=== PATIENT | female | born 1940 | race Caucasian/White ===

== ENCOUNTER 2018-07-04 14:52 | Emergency (ER) | payer OTHER ==
[~2018-07-04] VITALS: Ht 162.6 cm; Wt 72.6 kg
[~2018-07-04 14:52] MED LIST: ATEN50 PO; Amoxicillin875 MG PO; CALCIUM; CEPH500 PO; CHOL10002 PO; FAMC500 PO; Guaifenesin-Co118 ML PO; Keflex500 MG PO; NITR100CA PO; ONDA4 PO; Omeprazole20 M1 PO; PHENA100 PO; RANI150 PO; RISE35 PO; TRAM50 PO
[2018-07-04 16:17] LABS: BASOPHILS ABSOLUTE AUTO 0.05 K/mm3 (0.00-0.23); BASOPHILS PERCENT AUTO 1 % (0-2); EOSINOPHILS ABSOLUTE AUTO 0.06 K/mm3 (0.00-0.68); EOSINOPHILS PERCENT AUTO 1 % (0-6); Hematocrit 45.4 % (33.0-51.0); Hemoglobin 15.1 g/dL (11.5-16.0); IMMATURE GRAN ABSOLUTE AUTO 0.01 K/mm3 (0.00-0.10); IMMATURE GRAN PERCENT AUTO 0 % (0-1); LYMPHOCYTES ABSOLUTE AUTO 1.34 K/mm3 (0.84-5.20); LYMPHOCYTES PERCENT AUTO 22 % (21-46); MONOCYTES ABSOLUTE AUTO 0.45 K/mm3 (0.16-1.47); MONOCYTES PERCENT AUTO 7 % (4-13); Mean Corpuscular HGB 28.7 pg (26.0-34.0); Mean Corpuscular HGB Conc 33.3 g/dL (31.5-36.5); Mean Corpuscular Volume 86 fL (80-100); NEUTROPHILS ABSOLUTE AUTO 4.15 K/mm3 (1.96-9.15); NEUTROPHILS PERCENT AUTO 69 % (41-73); RDW Coefficient Variation 13.2 % (11.7-14.2); Red Blood Cell Count 5.27 M/mm3 (3.80-5.20); White Blood Cell Count 6.06 K/mm3 (4.00-11.30)
[2018-07-04 16:33] LABS: Alanine Aminotransfer (ALT/SGP 36 U/L (12-78); Albumin/Globulin Ratio 1.2 (0.8-1.8); Alk Phos 83 U/L (50-136); Anion Gap 7 mmol/L (6-16); Aspartate Aminotrans (AST/SGOT 25 U/L (12-37); Bilirubin, Total 0.6 mg/dL (0.1-1.0); Blood Urea Nitrogen 19 mg/dL (8-24); Bun/Creatinine Ratio 20.7 (12.0-20.0); CO2, Blood 26 mmol/L (21-32); Calcium, Blood 8.6 mg/dL (8.5-10.1); Chloride, Blood 107 mmol/L (98-108); Creatinine, Blood 0.92 mg/dL (0.40-1.00); Globulin, Blood 3.4 g/dL (2.2-4.0); Glomerular Filtration Rate >60 (60-); Glucose, Blood 101 mg/dL (70-99); Potassium, Blood 4.3 mmol/L (3.5-5.5); Sodium, Blood 140 mmol/L (136-145); Total Protein, Blood 7.4 g/dL (6.4-8.2); Troponin I <0.015 ng/mL (0.000-0.040)
[2018-07-04 16:35] LABS: Source, Urine Clean Catch
[2018-07-04 16:38] LABS: Appearance, Urine Clear (Clear); Bilirubin, Urine Neg (Neg); Blood, Urine 3+ (Neg); Color, Urine Yellow (P-Yellow); Glucose Qualitative, Urine Neg (Neg); Ketones, Urine 1+ (Neg); Leukocyte Esterase, Urine 2+ (Neg); Nitrite, Urine Neg (Neg); Protein, Urine Neg (Neg); Urobilinogen, Urine NORM (Normal); pH, Urine 6.5 (5.0-8.0)
[2018-07-04 16:46] LABS: Mean Platelet Volume 9.8 fL (9.1-12.4); Platelet Count 158 K/mm3 (150-400)
[2018-07-04 16:55] LABS: Bacteria Mod /hpf; Squamous Epithelial Cells Few /hpf (Few)
== END 2018-07-04 18:50 | disposition home or self-care (01) ==
LOC: ER 14:52
PROVIDERS: Emergency Medicine
DX: R55 Syncope and collapse (principal); R11.0 Nausea; I10 Essential (primary) hypertension; K21.9 Gastro-esophageal reflux disease without esophagitis
CPT/HCPCS: 36415; 80053; 81001; 84484; 85025; 87077; 87086; 87186; 93005; 93010; 96374; 99284-25; J2405; J7030

== ENCOUNTER 2018-11-23 12:42 | Emergency (ER) | payer OTHER ==
[~2018-11-23] VITALS: Ht 162.6 cm; Wt 75.8 kg
[2018-11-23] MEDS ORDERED: IBUP800 PO (13:56)
[2018-11-24] MEDS ORDERED: Norco 5-325 Ta1 EACH PO (11:30)
== END 2018-11-23 14:21 | disposition home or self-care (01) ==
LOC: ER 12:42
DX: M54.6 Pain in thoracic spine (principal); I10 Essential (primary) hypertension; M81.0 Age-related osteoporosis without current pathological fracture; K21.9 Gastro-esophageal reflux disease without esophagitis

== ENCOUNTER 2019-10-07 09:50 | Day surgery (SDC) | payer OTHER ==
[~2019-10-07] VITALS: Ht 162.6 cm; Wt 72.1 kg
[~2019-10-07 09:50] MED LIST changes: +Cipro500 MG PO; +Flagyl500 MG PO; +GABA300 PO; +IBUP800 PO; +Norco 5-325 Ta1 EACH PO; +SACC250C PO
--- NOTE | 2019-10-07 10:29 | NUR ---
10/07/19 1029 Pao Smith 1 IV MISS INRH BY RN 1 IV MISS IN RFA BY RN 1 GOOD IV IN LH BY MICHELLE PT TOW
== END 2019-10-07 11:34 | disposition home or self-care (01) ==
LOC: ORSCSDS 09:50
PROVIDERS: Internal Medicine Gastroenterology
PROC: 0DBN8ZX Excision of Sigmoid Colon, Via Natural or Artificial Opening Endoscopic, Diagnostic (ICD-10-PCS; principal; 2019-10-07 11:00)
PROC: 0DBK8ZX Excision of Ascending Colon, Via Natural or Artificial Opening Endoscopic, Diagnostic (ICD-10-PCS; principal; 2019-10-07 11:00)
PROC: 0DBM8ZX Excision of Descending Colon, Via Natural or Artificial Opening Endoscopic, Diagnostic (ICD-10-PCS; principal; 2019-10-07 11:00)
DX: K57.92 Diverticulitis of intestine, part unspecified, without perforation or abscess without bleeding (principal); Z86.010 Personal history of colon polyps; D12.4 Benign neoplasm of descending colon; D12.2 Benign neoplasm of ascending colon; K63.5 Polyp of colon; I10 Essential (primary) hypertension; K57.30 Diverticulosis of large intestine without perforation or abscess without bleeding; K64.8 Other hemorrhoids
CPT/HCPCS: 88305; J2704; J7120

== ENCOUNTER 2020-05-12 07:53 | Emergency (ER) | payer OTHER ==
[~2020-05-12] VITALS: Ht 162.6 cm; Wt 74.8 kg
[2020-05-12 08:54] LABS: BASOPHILS ABSOLUTE AUTO 0.05 K/mm3 (0.00-0.23); BASOPHILS PERCENT AUTO 1 % (0-2); EOSINOPHILS ABSOLUTE AUTO 0.06 K/mm3 (0.00-0.68); EOSINOPHILS PERCENT AUTO 1 % (0-6); Hematocrit 46.8 % (33.0-51.0); Hemoglobin 15.6 g/dL (11.5-16.0); IMMATURE GRAN ABSOLUTE AUTO 0.02 K/mm3 (0.00-0.10); IMMATURE GRAN PERCENT AUTO 0 % (0-1); LYMPHOCYTES ABSOLUTE AUTO 1.38 K/mm3 (0.84-5.20); LYMPHOCYTES PERCENT AUTO 16 % (21-46); MONOCYTES ABSOLUTE AUTO 0.87 K/mm3 (0.16-1.47); MONOCYTES PERCENT AUTO 10 % (4-13); Mean Corpuscular HGB 28.7 pg (26.0-34.0); Mean Corpuscular HGB Conc 33.3 g/dL (31.5-36.5); Mean Corpuscular Volume 86 fL (80-100); Mean Platelet Volume 10.3 fL (9.1-12.4); NEUTROPHILS ABSOLUTE AUTO 6.34 K/mm3 (1.96-9.15); NEUTROPHILS PERCENT AUTO 73 % (41-73); Platelet Count 149 K/mm3 (150-400); RDW Coefficient Variation 13.3 % (11.7-14.2); RDW Standard Deviation 41.2 fL (35.1-46.3); Red Blood Cell Count 5.43 M/mm3 (3.80-5.20); White Blood Cell Count 8.72 K/mm3 (4.00-11.30)
[2020-05-12 09:16] LABS: Alanine Aminotransfer (ALT/SGP 49 U/L (12-78); Albumin, Blood 3.9 g/dL (3.4-5.0); Albumin/Globulin Ratio 1.1 (0.8-1.8); Alk Phos 93 U/L (50-136); Anion Gap 6 mmol/L (6-16); Aspartate Aminotrans (AST/SGOT 24 U/L (12-37); Blood Urea Nitrogen 17 mg/dL (8-24); Bun/Creatinine Ratio 19.5 (12.0-20.0); CO2, Blood 27 mmol/L (21-32); Calcium, Blood 8.7 mg/dL (8.5-10.1); Chloride, Blood 108 mmol/L (98-108); Creatinine, Blood 0.87 mg/dL (0.40-1.00); Globulin, Blood 3.5 g/dL (2.2-4.0); Glomerular Filtration Rate >60 (60-); Glucose, Blood 134 mg/dL (70-99); Potassium, Blood 4.2 mmol/L (3.5-5.5); Sodium, Blood 141 mmol/L (136-145); Total Protein, Blood 7.4 g/dL (6.4-8.2)
[2020-05-12] MEDS ORDERED: CIPR500 PO (09:41)
[2020-05-12] MEDS ORDERED: METR500 PO (09:41)
[2020-05-12] MEDS ORDERED: Norco 7.5-3251 EACH PO (09:52)
== END 2020-05-12 10:25 | disposition home or self-care (01) ==
LOC: ER 07:53
PROVIDERS: Emergency Medicine
DX: K57.32 Diverticulitis of large intestine without perforation or abscess without bleeding (principal); M54.30 Sciatica, unspecified side; Z88.0 Allergy status to penicillin; Z79.899 Other long term (current) drug therapy; I10 Essential (primary) hypertension; K21.9 Gastro-esophageal reflux disease without esophagitis
CPT/HCPCS: 74177; 80053; 85025; 96374-59; 96375-59; 99284-25; A9270-GY; J1885; J3010; Q9967

== ENCOUNTER → 2020-06-01 | Outpatient (CLI) | payer OTHER ==
[~2020-06-01] MED LIST changes: +AMOCLA875 PO; +CIPR500 PO; +FAMO20 PO; +METR500 PO; +Norco 7.5-3251 EACH PO
[2020-06-01 09:58] LABS: Source, Urine Clean Catch
[2020-06-01 10:34] LABS: Bilirubin, Urine Neg (Neg); Blood, Urine 3+ (Neg); Glucose Qualitative, Urine Neg (Neg); Ketones, Urine Neg (Neg); Leukocyte Esterase, Urine 1+ (Neg); Nitrite, Urine Neg (Neg); Protein, Urine Neg (Neg); Urobilinogen, Urine NORM (Normal)
[2020-06-01 10:51] LABS: Appearance, Urine Clear (Clear); Color, Urine Yellow (P-Yellow)
[2020-06-01 10:53] LABS: Squamous Epithelial Cells Few /hpf (Few)
[2020-06-01 10:55] LABS: Bacteria Few /hpf
== END | disposition home or self-care (01) ==
LOC: OLS 09:56 → LAB SHORT 09:56
PROVIDERS: Internal Medicine
DX: N39.0 Urinary tract infection, site not specified (principal)
CPT/HCPCS: 81001; 87086

== ENCOUNTER 2020-06-08 16:12 | Emergency (ER) | payer OTHER ==
[~2020-06-08] VITALS: Ht 162.6 cm; Wt 73.5 kg
[~2020-06-08 16:12] MED LIST changes: -AMOCLA875 PO; -FAMO20 PO
[2020-06-08 17:08] LABS: BASOPHILS ABSOLUTE AUTO 0.05 K/mm3 (0.00-0.23); BASOPHILS PERCENT AUTO 1 % (0-2); EOSINOPHILS ABSOLUTE AUTO 0.08 K/mm3 (0.00-0.68); EOSINOPHILS PERCENT AUTO 2 % (0-6); Hematocrit 47.3 % (33.0-51.0); Hemoglobin 15.4 g/dL (11.5-16.0); IMMATURE GRAN ABSOLUTE AUTO 0.02 K/mm3 (0.00-0.10); IMMATURE GRAN PERCENT AUTO 0 % (0-1); LYMPHOCYTES ABSOLUTE AUTO 1.76 K/mm3 (0.84-5.20); LYMPHOCYTES PERCENT AUTO 35 % (21-46); MONOCYTES ABSOLUTE AUTO 0.58 K/mm3 (0.16-1.47); MONOCYTES PERCENT AUTO 12 % (4-13); Mean Corpuscular HGB 28.3 pg (26.0-34.0); Mean Corpuscular HGB Conc 32.6 g/dL (31.5-36.5); Mean Corpuscular Volume 87 fL (80-100); Mean Platelet Volume 10.4 fL (9.1-12.4); NEUTROPHILS ABSOLUTE AUTO 2.55 K/mm3 (1.96-9.15); NEUTROPHILS PERCENT AUTO 51 % (41-73); Platelet Count 160 K/mm3 (150-400); RDW Coefficient Variation 13.3 % (11.7-14.2); RDW Standard Deviation 42.2 fL (35.1-46.3); Red Blood Cell Count 5.44 M/mm3 (3.80-5.20); White Blood Cell Count 5.04 K/mm3 (4.00-11.30)
[2020-06-08 17:19] LABS: Albumin, Blood 3.8 g/dL (3.4-5.0); Albumin/Globulin Ratio 1.1 (0.8-1.8); Bilirubin, Total 0.5 mg/dL (0.1-1.0); Bun/Creatinine Ratio 17.6 (12.0-20.0); Calcium, Blood 8.9 mg/dL (8.5-10.1); Creatinine, Blood 0.97 mg/dL (0.40-1.00); Globulin, Blood 3.6 g/dL (2.2-4.0); Potassium, Blood 3.6 mmol/L (3.5-5.5); Total Protein, Blood 7.4 g/dL (6.4-8.2)
[2020-06-08 18:51] LABS: Source, Urine Clean Catch
[2020-06-08 18:54] LABS: Appearance, Urine Clear (Clear); Bilirubin, Urine Neg (Neg); Blood, Urine 3+ (Neg); Color, Urine Yellow (P-Yellow); Glucose Qualitative, Urine Neg (Neg); Ketones, Urine Neg (Neg); Leukocyte Esterase, Urine Neg (Neg); Nitrite, Urine Neg (Neg); Protein, Urine 1+ (Neg); Specific Gravity, Urine 1.025 (1.003-1.022); Urobilinogen, Urine NORM (Normal)
[2020-06-08 19:19] LABS: Bacteria Rare /hpf; Red Blood Cells, Urine 0-2 /hpf (0-2); Squamous Epithelial Cells Rare /hpf (Few); White Blood Cells, Urine 0-2 /hpf (0-5)
[2020-06-08] MEDS ORDERED: FAMO20 PO (20:46)
[2020-06-08] MEDS ORDERED: AMOCLA875 PO (21:36)
== END 2020-06-08 21:59 | disposition home or self-care (01) ==
LOC: ER 16:12
PROVIDERS: Physician Assistant
DX: K57.32 Diverticulitis of large intestine without perforation or abscess without bleeding (principal); I10 Essential (primary) hypertension; K21.9 Gastro-esophageal reflux disease without esophagitis; Z88.0 Allergy status to penicillin; Z79.899 Other long term (current) drug therapy
CPT/HCPCS: 36415; 74176; 80053; 81001; 83690; 85025; 99284-25

== ENCOUNTER 2020-07-02 14:23 | Inpatient (IN) | payer OTHER ==
[~2020-07-02] VITALS: Ht 162.6 cm; Wt 72.9 kg
[~2020-07-02 14:23] MED LIST changes: +AMOCLA875 PO; +FAMO20 PO
--- NOTE | 2020-07-07 07:09 | NUR ---
[facility] in [facility] warming gown applied. Surgical site prepped with 2% Chlorhexidine cloth wipe. History, Chart, Medications and Allergies reviewed before start of procedure.Lungs clear T/O to Auscultation. Patient confirms NPO status and agrees with scheduled surgery. Pre-Op teaching done. Pt verbalizes understanding. Patient reports completing Chlorhexadine shower X2 prior to admission to hospital.Patient states colon prep results clear.
--- NOTE | 2020-07-07 08:28 | NUR ---
07/07/20 0828 Rommel Perdomo [facility] CATH PLACED PER PRAFUL LOMBARDI
--- NOTE | 2020-07-07 12:15 | NUR ---
pt arrived to room 227 via bed pt is s/p sigmoid coloectomy pt has 4 incisions to abd with dermabond c/d/i pt had btx1 upper r only pt is drowsy but nods for questions denies n/v mild pain oriented to room layout
--- NOTE | 2020-07-07 14:19 | NUR ---
PT RESTING EARLIER WOKE UP IN PAIN PT GIVEN SOME H20 NO NAUSEA PO TYLENOL AND NEURONTIN GIVEN PT STILL HURTING IV DIAUDID GIVEN PT CURRENTLY RESTING
--- NOTE | 2020-07-07 14:35 | NUR ---
DR JUNG BY TO SEE PT VASOTEC PRN ORDERED IF SBP OVER 170 OR DBP OVER 120
--- NOTE | 2020-07-07 17:12 | NUR ---
pt awake talking on the phone
--- NOTE | 2020-07-07 18:20 | NUR ---
pt stated she had some nausea after eating her cl diet stated it is better declined po tylenol at this time no emesis offered zofran pt declined pt asked for a bpm architect for her phone
[2020-07-08 04:48] LABS: Hematocrit 40.7 % (33.0-51.0); Hemoglobin 13.1 g/dL (11.5-16.0); Mean Corpuscular HGB 28.5 pg (26.0-34.0); Mean Corpuscular HGB Conc 32.2 g/dL (31.5-36.5); Mean Corpuscular Volume 89 fL (80-100); Mean Platelet Volume 10.1 fL (9.1-12.4); Platelet Count 132 K/mm3 (150-400); RDW Coefficient Variation 13.4 % (11.7-14.2); RDW Standard Deviation 43.6 fL (35.1-46.3)
[2020-07-08 05:03] LABS: Anion Gap 5 mmol/L (6-16); Blood Urea Nitrogen 13 mg/dL (8-24); Bun/Creatinine Ratio 18.5 (12.0-20.0); CO2, Blood 26 mmol/L (21-32); Calcium, Blood 7.8 mg/dL (8.5-10.1); Chloride, Blood 112 mmol/L (98-108); Glomerular Filtration Rate >60 (60-); Glucose, Blood 130 mg/dL (70-99); Potassium, Blood 3.6 mmol/L (3.5-5.5); Sodium, Blood 143 mmol/L (136-145)
--- NOTE | 2020-07-08 07:06 | NUR ---
SUMMARY NO C/O NAUSEA TONIGHT. NO FLATUS YET. ALERT. TYLENOL PO GIVEN PER ORDERS FOR PAIN.
--- NOTE | 2020-07-08 07:10 | NUR ---
RECVD BEDSIDE REPORT FROM PREVIOUS SHIFT RN BORIS PT WOKE UP EASILY FOR MED ADMINISTRATION, A/O X 4, PLEASANT/COOPERATIVE. BED IN LOWEST POSITION, BEDRAILS UP X2, CALL LIGHT WITHIN REACH
--- NOTE | 2020-07-08 09:47 | NUR ---
friend visiting pt
--- NOTE | 2020-07-08 17:43 | NUR ---
SHIFT SUMMARY: VSS, NO ACUTE CHANGES, PT TOLERATING PO INTAKE REGULAR DIET WITN NO N/V, VOIDING AND STATES SHE IS PASSING FLATUE, AMBULATING IN HALLWAY, UP IN CHAIR FOR MEALS. LAPARASCOPIC SITES C/D/I WNL. PT RATES PAIN AT 5/10 WITH TYLENOL, STATES SHE IS ABLE TO SLEEP WITH THIS, REFUSES FURTHER ANALGESIA PER MAR.
--- NOTE | 2020-07-09 07:11 | NUR ---
SUMMARY PT AMBULATORY. VOIDING. TOLERATING PO. PAIN WELL CONTROLLED .
--- NOTE | 2020-07-09 07:15 | NUR ---
recvd report from previous RN Gamaliel pt sleeping in bed with two bedrails up, bed in lowest position, call light within reach
--- NOTE | 2020-07-09 16:22 | NUR ---
SHIFT SUMMARY: VSS, NO ACUTE CHANGES. PT TOLERATED PO INTAKE THIS SHIFT WITH NO N/V. PASSING FLATUS AND HAD ONE SMALL FORMED BM THIS SHIFT. PT STATES PAIN IS CONTROLLED TO HER EXPECTATION (AND APPEARS TO BE SLEEPING PEACEFULLY ON ROUNDING) PER MAR. PT AMBULATING IN HALLWAY, UP IN ROOM, UP IN CHAIR OR SITTING AT BEDSIDE FOR MEALS.
[2020-07-10 04:18] LABS: Hematocrit 40.2 % (33.0-51.0); Mean Corpuscular HGB 28.5 pg (26.0-34.0); Mean Corpuscular HGB Conc 32.3 g/dL (31.5-36.5); Mean Corpuscular Volume 88 fL (80-100); Mean Platelet Volume 9.8 fL (9.1-12.4); Platelet Count 136 K/mm3 (150-400); RDW Coefficient Variation 13.2 % (11.7-14.2); Red Blood Cell Count 4.56 M/mm3 (3.80-5.20); White Blood Cell Count 5.31 K/mm3 (4.00-11.30)
[2020-07-10 04:35] LABS: Anion Gap 4 mmol/L (6-16); Blood Urea Nitrogen 15 mg/dL (8-24); Bun/Creatinine Ratio 18.7 (12.0-20.0); CO2, Blood 28 mmol/L (21-32); Calcium, Blood 8.3 mg/dL (8.5-10.1); Chloride, Blood 109 mmol/L (98-108); Glomerular Filtration Rate >60 (60-); Glucose, Blood 116 mg/dL (70-99); Sodium, Blood 141 mmol/L (136-145)
--- NOTE | 2020-07-10 09:03 | NUR ---
DR JUNG HERE TO SEE PT, REPORTS PT MAY D/C TODAY.
[2020-07-10] MEDS ORDERED: DOCU100 PO (11:32)
[2020-07-10] MEDS ORDERED: ACET500 PO (11:32)
[2020-07-10] MEDS ORDERED: OXAYDO5 MG PO (11:33)
--- NOTE | 2020-07-10 11:54 | NUR ---
DISCHARGE: PT REPORTS UNDERSTANDING OF DISCHARGE INSTRUCTIONS INCLUDING MEDICATIONS. PT EATING AND DRINKING, VOIDING, REPORTS HAVING BM TODAY. PT TO BE SENT WITH BELONGINGS, SCRIPT, PAPERWORK. PT UP IND WITH STEADY GAIT. PT AWAITING RIDE HOME.
--- NOTE | 2020-07-10 12:13 | NUR ---
PT REPORTS FAMILY/FRIEND OUTSIDE TO PICK PT UP. PT REPORTS HAVING ALL BELONGINGS, PAPERWORK INCLUDING SCRIPT. PT GIVEN W/C RIDE OUT PER PT REQ.
== END 2020-07-10 12:26 | disposition home or self-care (01) | DRG 331 ==
LOC: SURS 07-07 06:11 → PRE IP 07-07 07:30 → SURS 07-07 12:02
PROVIDERS: ADMIT Surgery
PROC: 0DBN4ZZ Excision of Sigmoid Colon, Percutaneous Endoscopic Approach (ICD-10-PCS; principal; 2020-07-07 07:30)
DX: K57.32 Diverticulitis of large intestine without perforation or abscess without bleeding (principal); I10 Essential (primary) hypertension; M81.0 Age-related osteoporosis without current pathological fracture; K66.0 Peritoneal adhesions (postprocedural) (postinfection)
CPT/HCPCS: 36415; 80048; 83735; 85027; 88307; A9270; J0330; J0694; J1170; J1644; J1650; J2250; J2370; J2405; J2710; J3010; J7120; Q2038

== ENCOUNTER 2021-10-29 12:01 | Emergency (ER) | payer OTHER ==
[~2021-10-29] VITALS: Ht 162.6 cm; Wt 72.6 kg
[~2021-10-29 12:01] MED LIST changes: +ACET500 PO; +DOCU100 PO; +OXAYDO5 MG PO
[2021-10-29] MEDS ORDERED: Robaxin750 MG PO (16:30)
[2021-10-29] MEDS ORDERED: METO10 PO (16:30)
== END 2021-10-29 16:30 | disposition home or self-care (01) ==
LOC: ER 12:01
DX: S09.90XA Unspecified injury of head, initial encounter (principal); S16.1XXA Strain of muscle, fascia and tendon at neck level, initial encounter; M62.838 Other muscle spasm; I10 Essential (primary) hypertension; K21.9 Gastro-esophageal reflux disease without esophagitis; Z88.0 Allergy status to penicillin; Z79.899 Other long term (current) drug therapy; W00.0XXA Fall on same level due to ice and snow, initial encounter
CPT/HCPCS: 70450; 72125; 96372; 99284-25; A9270; J1885